=== PATIENT | female | born 1965 | race Caucasian/White ===

== ENCOUNTER 2017-02-27 13:08 | Outpatient (CLI) | payer OTHER ==
--- NOTE | 2017-02-27 14:47 | RAD ---
THREE VIEWS LUMBOSACRAL SPINE: COMPARISON: None. HISTORY: Low back pain for 20 years. FINDINGS: Three views of the lumbosacral spine show normal height and alignment of the vertebral bodies withou t fracture or subluxation. There is narrowing of the L5-S1 intervertebral disk with small surroundi ng osteophytes. Cholecystectomy clips are seen. IMPRESSION: Mild degenerative changes at L5-S1 without acute osseous abnormality. POS: JO ANN
== END 2017-02-27 13:09 | disposition home or self-care (01) ==
LOC: NAV RAD 13:08
PROVIDERS: ATTEND Family Medicine
DX: M51.36 Other intervertebral disc degeneration, lumbar region (principal); M47.817 Spondylosis without myelopathy or radiculopathy, lumbosacral region
CPT/HCPCS: 72100

== ENCOUNTER 2018-04-15 12:56 | Emergency (ER) | payer OTHER ==
--- NOTE | 2018-04-15 14:13 | RAD ---
3 VIEWS RIGHT HAND: Date: 04/15/18 HISTORY: Injury to right hand with tingling in thumb and index fingers, with pain with range of motion of the fingers of the right hand. FINDINGS: Three views of the right hand show no evidence of acute fracture or dislocation. Mild diffuse soft ti ssue swelling is seen. No degenerative changes are present. IMPRESSION: Unremarkable exam. POS: [facility]
== END 2018-04-15 13:47 | disposition home or self-care (01) ==
LOC: NAV ERS 12:56
DX: S60.221A Contusion of right hand, initial encounter (principal); K21.9 Gastro-esophageal reflux disease without esophagitis; I10 Essential (primary) hypertension; J45.909 Unspecified asthma, uncomplicated; F31.9 Bipolar disorder, unspecified; Z87.891 Personal history of nicotine dependence; Z79.899 Other long term (current) drug therapy; W23.0XXA Caught, crushed, jammed, or pinched between moving objects, initial encounter; Y92.69 Other specified industrial and construction area as the place of occurrence of the external cause; Y99.0 Civilian activity done for income or pay

== ENCOUNTER 2024-12-10 20:17 | Emergency (ER) | payer BC, OTHER ==
[2024-12-10] MEDS ORDERED: Benzonatate 100 MG CAP ONE (21:33)
== END 2024-12-10 21:40 | disposition home or self-care (01) ==
LOC: NAV ERS 20:17
DX: J20.9 Acute bronchitis, unspecified (principal); J45.909 Unspecified asthma, uncomplicated; I10 Essential (primary) hypertension; Z87.891 Personal history of nicotine dependence; Z79.899 Other long term (current) drug therapy
CPT/HCPCS: 71046; 87428